=== PATIENT | female | born 1990 | race Caucasian/White ===

== ENCOUNTER 2020-02-13 11:38 | Day surgery (SDC) | payer OTHER ==
[~2020-02-13] VITALS: Ht 160 cm; Wt 115.0 kg
[2020-02-13 12:32] VITALS: BP 125/81; PULSE 84; TEMP 98.3
[2020-02-13] MEDS ORDERED: GLUCOPHAGE500 MG/TAB PO (12:40)
[2020-02-13 14:55] VITALS: BP 118/66; PULSE 69; TEMP 98.8
--- NOTE | 2020-02-13 14:55 | NUR ---
Pt returned via cart to [facility]. A&O. VSS-see flowsheet. Requested sprite, toast and jello. Pt SBA to bathroom to void upon return to [facility]. Able to void, reports discomfort with urination. Side rails up, call light in reach.
[2020-02-13 15:10] VITALS: BP 123/72; PULSE 78
[2020-02-13 15:25] VITALS: BP 124/76; PULSE 88
--- NOTE | 2020-02-13 15:37 | NUR ---
Pt c/o pain/discomfort in vaginal area. Rates pain a 02/12. Given prn pain medication per orders-see OCT.
[2020-02-13 15:40] VITALS: BP 118/65; PULSE 77
--- NOTE | 2020-02-13 15:53 | NUR ---
Pt reports pain relief after pain medication and rest. Tolerated jello and toast. Voiced she feels ready to get dressed.
--- NOTE | 2020-02-13 16:15 | NUR ---
Pt up to void again. Denies other complaints. VS remain stable. IV removed, pressure dressing applied. Pt dressed and discharge teaching completed, pt verbalized understanding. Taken via wheelchair to private vehicle for dc home with spouse driving.
[2020-02-14] MEDS ORDERED: PERCOCET 325 MG1 TA2 PO (18:35)
== END 2020-02-13 16:15 | disposition home or self-care (01) ==
LOC: SDCO 11:38
DX: N20.1 Calculus of ureter (principal); E66.01 Morbid (severe) obesity due to excess calories; E28.2 Polycystic ovarian syndrome; Z79.84 Long term (current) use of oral hypoglycemic drugs; Z80.41 Family history of malignant neoplasm of ovary; Z68.41 Body mass index [BMI] 40.0-44.9, adult
CPT/HCPCS: C1769; C2617; J0690; J1100; J1885; J2405; J2704; J3010; J7120; Q9967

== ENCOUNTER 2020-02-14 15:55 | Emergency (ER) | payer OTHER ==
[~2020-02-14] VITALS: Ht 160 cm; Wt 113.6 kg
[~2020-02-14 15:55] MED LIST: GLUCOPHAGE500 MG/TAB PO
[2020-02-14 16:08] VITALS: TEMP 97.9
[2020-02-14 16:22] LABS: COLLECTION METHOD CLEAN CATCH
[2020-02-14 16:52] LABS: MUCOUS Present /lpf; PH 5 (5-8); SQUAMOUS EPITHELIAL None Seen /hpf; URINE APPEARANCE Cloudy; URINE BACTERIA None Seen /hpf; URINE BILIRUBIN Negative (NEGATIVE); URINE BLOOD 3+ (NEGATIVE); URINE COLOR Red; URINE GLUCOSE 1+ (NEGATIVE); URINE KETONE Negative (NEGATIVE); URINE LEUKOCYTE ESTERASE Negative (NEGATIVE); URINE NITRATE Positive (NEGATIVE); URINE PROTEIN(semi-quant) 3+ (NEGATIVE); URINE RBC >50 /hpf; URINE UROBILINOGEN >=4.0 mg/dL (NEGATIVE)
[2020-02-14 17:41] LABS: BASO % 0.2 % (0.0-2.0); GRAN # 8.9 (1.4-6.5); GRAN % 70.8 % (42.2-75.2); HEMOGLOBIN 13.9 g/dl (12.5-16.0); LYMPH # 2.7 (1.2-3.4); LYMPH % 21.1 % (20.0-51.0); MEAN CELL VOLUME 87 fl (80.0-100.0); MEAN CORPUSCULAR HEMOGLOBIN 29 pg (27.0-31.0); MEAN CORPUSCULAR HGB CONC 34 g/dl (33.0-37.0); MONO # 0.9 (0.1-0.6); MONO % 7.5 % (1.7-9.3); PLATELET COUNT 216 K/mm3 (130-400); RED BLOOD COUNT 4.73 M/mm3 (4.10-5.30); REDCELL DISTRIBUTION WIDTH-CV 12.6 % (11.5-14.5)
[2020-02-14 18:28] LABS: CALCIUM 8.5 mg/dL (8.4-10.2); CREATININE, serum 0.67 (0.52-1.25); POTASSIUM 3.5 mmol/L (3.4-5.0)
[2020-02-14] MEDS ORDERED: PERCOCET 325 MG1 TA2 PO (18:35)
[2020-02-14 19:28] VITALS: BP 110/73; PULSE 79
== END 2020-02-14 19:28 | disposition home or self-care (01) ==
LOC: COL.ER 15:55
PROVIDERS: Emergency Medicine
DX: R10.32 Left lower quadrant pain (principal); Z87.442 Personal history of urinary calculi; Z96.0 Presence of urogenital implants
CPT/HCPCS: J1885; J2405; J3010; J7030